=== PATIENT | male | born 1990 ===

== ENCOUNTER 2019-03-27 12:18 | Emergency (ER) | payer OTHER ==
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
--- NOTE | 2019-03-27 14:10 | RAD ---
PROCEDURE: Left Hip X-ray Radiographs. HISTORY: s/p fall, r/o fx COMPARISON: None. TECHNIQUE: 3 views obtained. FINDINGS: BONES: The pelvic ring is intact. Bone alignment and mineralization are normal. There is no acute displaced fracture or bone destruction. JOINTS: There is mild degenerative osteoarthrosis in the right hip joint with reduced joint space. The left hip joint space is preserved. SOFT TISSUES: Normal. OTHER FINDINGS: None. IMPRESSION: No acute displaced fracture or dislocation. Please note occult fractures cannot be excluded on plain radiographs. If there is a persistent clinical concern, an MRI of the hip may be performed for further evaluation.
--- NOTE | 2019-03-27 15:43 | CT ---
PROCEDURE: CT of the left extremity without contrast HISTORY: attention left hip COMPARISON: Left hip x-rays same date 03/27/2019 noted. TECHNIQUE: ontiguous axial images of the left hip were obtained. Coronal and sagittal reformats were generated. This CT exam was performed using one or more of the following dose reduction techniques: Automated exposure control, adjustment of the mA and/or kV according to patient size, and/or use of iterative reconstruction technique. Total exam DLP: 369(mGy-cm) FINDINGS: BONES: No fracture or lytic lesion noted. No hip dislocation. SOFT TISSUES: . There is extensive left subcutaneous reticulated edema present. This spans from at least 5 cm above the left femoral head to the inferior field of view of the proximal left femoral shaft. A span of at least 15 cm of subcutaneous reticulated edema over the left lateral thigh soft tissues is present. In addition, there is sub fascial thin vertically oriented elongated fluid collection left lateral to the left upper thigh muscle bundles compatible with a shear type injury consisting of a sub fascial seroma or hematoma here-a Guadarrama-Lavalee lesion. JOINT:: Minimal left superolateral hip joint space narrowing. No marked significant osteoarthrosis noted. IMPRESSION: No fracture or lytic lesion. No dislocation. Extensive left lateral subcutaneous reticulated edema. In addition to this a left upper thigh sub fascial thin yet vertically elongated fluid like collection-a Guadarrama-Julio lesion-a shear type injury consisting of sub fascial seroma and/or hematoma is inferred. Clinical follow-up recommended.
[2019-03-27] MEDS ORDERED: Sodium Chloride 0.9% 1,000 ML IV ONE (16:11)
[2019-03-27 16:54] LABS: BASO % 0.3 % (0.0-2.0); EOS % 0.3 % (0.0-4.0); HEMOGLOBIN 16.5 g/dL (12.0-18.0); LYMPH # 1.7 K/uL (1.0-4.3); LYMPH % 18.9 % (20.0-40.0); MEAN CELL VOLUME 94.9 fl (80.0-94.0); MEAN CORPUSCULAR HGB CONC 34.8 g/dL (33.0-37.0); MEAN PLATELET VOLUME 8.2 fl (7.2-11.7); MONO # 0.8 K/uL (0.0-0.8); MONO % 9.2 % (0.0-10.0); NEUT # 6.4 K/uL (1.8-7.0); NEUT % 71.3 % (50.0-75.0); NRBC % 0.1 % (0.0-0.0); RBC 5.01 Mil/uL (4.40-5.90); RED CELL DISTRIBUTION WIDTH 12.3 % (11.5-14.5); WHITE BLOOD COUNT 8.9 K/uL (4.8-10.8)
[2019-03-27 17:02] LABS: ALB/GLOB RATIO 1.2 (1.0-2.1); ALBUMIN 4.5 g/dL (3.5-5.0); ALT/SGPT 335 U/L (21-72); BLOOD UREA NITROGEN 16 mg/dl (9-20); CALCIUM 9.2 mg/dL (8.4-10.2); GFR NON-AFRICAN AMERICAN > 60
[2019-03-27 17:03] LABS: PARTIAL THROMBOPLASTIN TIME 20.7 Seconds (25.6-37.1)
[2019-03-27 17:09] LABS: AST/SGOT 1093 U/L (17-59)
[2019-03-27] MEDS ORDERED: Gadodiamide 287 MG/ML VIAL (15ML) IV ONE (17:31)
[2019-03-27 23:07] VITALS: BP 138/80; PULSE 70; RESP 18; TEMP 98.2
--- NOTE | 2019-03-28 11:27 | US ---
Date of service: 03/27/2019 HISTORY: elevated LFTs COMPARISON: None. TECHNIQUE: Sonographic evaluation of the right upper quadrant of the abdomen. FINDINGS: LIVER: Measures 16.4 cm in length. Patent portal and hepatic venous systems. Hepatopedal blood flow. Fatty infiltration manifest ultrasonographically as increased echogenicity of the liver parenchyma. No mass. No intrahepatic bile duct dilatation. GALLBLADDER: Unremarkable. No gallstones. COMMON BILE DUCT: Measures 3.0 mm. No stones. No dilatation. PANCREAS: Unremarkable as visualized. No mass. No ductal dilatation. RIGHT KIDNEY: Measures 4.8 x 10.5 cm in length. Normal echogenicity. No calculus, mass, or hydronephrosis. AORTA: No aneurysmal dilatation. IVC: Unremarkable. OTHER FINDINGS: None . IMPRESSION: No significant or acute findings to account for/ related to the clinical presentation. Concordant findings (preliminary report) provided by [facility].
--- NOTE | 2019-03-28 16:51 | MRI ---
Date of service: 03/27/2019 PROCEDURE: LEFT HIP MRI WITH AND WITHOUT CONTRAST HISTORY: left lateral hip subq edema, Guadarrama-Julio lesion COMPARISON: CT Left Hip as well as Left Hip/pelvis radiographs both from 04/04/2019. TECHNIQUE: Multiplanar multisequential MR imaging of the left hip was performed prior to and following intravenous gadolinium striation (Omniscan 12 cc) including but not limited to fat suppression T1 weighted sequences both preliminarily and contrast enhanced. FINDINGS: Once again there is no fracture or bone contusion appreciated throughout the left hip joint. No dislocation or subluxation either. The labrum appears intact. Edematous changes are identified within the gluteus medius muscle particularly and near its insertion as well as the gluteus daksha muscle, both of which enhance significantly. In addition, there is significant edema and enhancement at the obturator internus muscle. Limited similar changes are present involving the vastus medialis muscle and the biceps femoris muscle. Findings compatible with longitudinal muscle tears and favored over severe sprains. There is moderate edema identified within the superficial and deep subcutaneous fat overlying the vastus lateralis muscle and the gluteus daksha muscle laterally as well. A small seroma or hematoma has developed lateral to the vastus lateralis muscle as well. This is felt to represent a small Guadarrama-Julio lesion measuring 0.7 x 4.6 cm. IMPRESSION: Probable small Guadarrama-Julio lesion collection lateral to vastus lateralis muscle with multifocal except for the left hip/proximal thigh muscle collection immediately superficial expected tear is identified as discussed above. No fracture, subluxation or dislocation at any destruction laterally mildly. Please see discussion above. Preliminary report provided by Felipa, 03/27/2019, 7:48 p.m..
[2019-03-28 23:30] VITALS: O2SAT 100
== END 2019-03-27 23:07 | disposition home or self-care (01) ==
LOC: H.ER 12:18
DX: S70.02XA Contusion of left hip, initial encounter (principal); W19.XXXA Unspecified fall, initial encounter; Y92.89 Other specified places as the place of occurrence of the external cause
CPT/HCPCS: 73503; 73700; 73723; 76705; 80053; 82553; 85025; 85610; 85730; 96372; 99284; A9579; J1885; J7040